=== PATIENT | male | born 1970 | race Caucasian/White ===

== ENCOUNTER 2018-06-11 15:53 | Emergency (ER) | payer OTHER ==
[2018-06-11 16:16] VITALS: BP 136/81
--- NOTE | 2018-06-11 16:31 | UC ---
Complaint Male HPI - HPI Summary HPI Summary: on 06/06/18, pt choked on a piece of his cheeseburger while urinating. he noted a simultaneous pressure in his penis and then passed some dark blood post void. that continued for 1 day. he is here today because that occured while oot and he still has a little burning with urination. he denies any hx injury as well as risk/concern for std. - History of Current Complaint Chief Complaint: UCGU Stated Complaint: URINARY Time Seen by Provider: 06/11/18 16:12 Hx Obtained From: Patient Onset/Duration: Sudden Onset Pain Intensity: 0 Aggravating Factor(s): Nothing Alleviating Factor(s): Nothing Associated Signs And Symptoms: Positive: Hematuria, Dysuria. Negative: Back Pain, Fever - Allergies/Home Medications Allergies/Adverse Reactions: Allergies Allergy/AdvReac Type Severity Reaction Status Date / Time Penicillins Allergy Severe SOB/Hives Verified 06/11/18 16:16 Home Medications: Home Medications Hydrochlorothiazide TAB* [Hydrodiuril TAB*] 25 mg PO DAILY 06/11/18 [History Confirmed 06/11/18] amLODIPine TAB* [Norvasc 5 mg TAB*] 5 mg PO DAILY 06/11/18 [History Confirmed ] PMH/Surg Hx/FS Hx/Imm Hx Cardiovascular History: Hypertension - Surgical History Surgical History: Yes Surgery Procedure, Year, and Place: CYST REMOVED FROM THROAT - Family History Known Family History: Positive: Hypertension, Diabetes, Renal Disease - Social History Occupation: Employed Full-time Alcohol Use: None Substance Use Type: None Smoking Status (MU): Former Smoker Type: Cigarettes Amount Used/How Often: 3 cigarettes daily Have You Smoked in the Last Year: Yes When Did the Patient Quit Smoking/Using Tobacco: 11/05/14 - Immunization History Hx Tetanus, Diphtheria Vaccination: No Vaccination Up to Date: Yes Review of Systems Constitutional: Negative Skin: Negative Eyes: Negative ENT: Negative Respiratory: Negative Cardiovascular: Negative Gastrointestinal: Negative Genitourinary: Dysuria, Hematuria Motor: Negative Neurovascular: Negative Musculoskeletal: Negative Neurological: Negative Psychological: Negative Is Patient Immunocompromised?: No All Other Systems Reviewed And Are Negative: Yes Physical Exam Triage Information Reviewed: Yes Appearance: Well-Appearing Vital Signs: Initial Vital Signs Temp 98.8 F 06/11/18 16:11 Pulse 66 06/11/18 16:11 Resp 18 06/11/18 16:11 BP 136/81 06/11/18 16:11 Pulse Ox 98 06/11/18 16:11 Vital Signs Reviewed: Yes Eyes: Positive: Conjunctiva Clear ENT: Positive: Pharynx normal. Negative: Nasal congestion, Nasal drainage Neck: Positive: Supple, Nontender, No Lymphadenopathy Respiratory: Positive: Lungs clear, Normal breath sounds Cardiovascular: Positive: RRR, No Murmur Abdomen Description: Positive: Nontender, No Organomegaly, Soft. Negative: Distended, Guarding Bowel Sounds: Positive: Present Male Genital Exam: Positive: Normal Genitalia, No Hernia. Negative: Bleeding, Epididymal Tenderness, Scrotum Tenderness (R), Scrotum Tenderness (L), Testicular Tenderness (R), Testicular Tenderness (L), Urethral Discharge Musculoskeletal: Positive: ROM Intact Neurological: Positive: Alert Psychological: Positive: Age Appropriate Behavior Skin Exam: Normal Diagnostics - Laboratory Diagnostic Studies Completed/Ordered: u/a= 1+ leukocytes, culture is pending. Complaint Male Course/Dx - Course Course Of Treatment: pt declined std testing citing no risk/concern. no concern for testicular torsion. not c/w prostatitis. given the hx of rhona hematuria, will refer to urology. u/a is + for leukocytes thus will tx with Bactrim with culture pending as well. pt resides in [place] and request a local urologist. - Differential Dx/Diagnosis Provider Diagnoses: Hematuria, dysuria Discharge - Sign-Out/Discharge Documenting (check all that apply): Patient Departure - Discharge Plan Condition: Stable Disposition: HOME Prescriptions: Sulfamethox/Trimethoprim DS* [Bactrim DS 800/160 TAB*] 1 tab PO BID 7 Days #14 tab Referrals: Elaina Skinner PA [Primary Care Provider] - 7 Days Additional Instructions: CALL DR PIERRE(UROLOGY) TOMORROW FOR NEXT AVAILABLE APPOINTMENT [address], [address] [place] [address] - Billing Disposition and Condition Condition: STABLE Disposition: Home
== END 2018-06-11 16:57 | disposition home or self-care (01) ==
LOC: UCCORT 15:53
DX: R31.9 Hematuria, unspecified (principal); R30.0 Dysuria; Z88.0 Allergy status to penicillin; Z87.891 Personal history of nicotine dependence
CPT/HCPCS: 81003; 87086; 99212; G0463

== ENCOUNTER 2018-07-03 19:26 | Emergency (ER) | payer OTHER ==
[2018-07-03 20:33] VITALS: BP 130/93
[2018-07-03] MEDS ORDERED: hydrOXYzine HCL TAB* 25 MG PO ONE (21:10)
[2018-07-03] MEDS ORDERED: methylPREDNISolone 125 MG* 2 ML VIAL IM ONE (21:10)
[2018-07-03] MEDS ORDERED: Famotidine TAB* 20 MG PO ONE (21:10)
--- NOTE | 2018-07-03 21:57 | UC ---
Skin Complaint HPI - HPI Summary HPI Summary: 48-year-old male history of asthma presents with episode of gradual onset asthma attack yesterday relieved by inhaler medication at home, followed by itchy rash located bilateral eyes, forehead, and extremities today, total duration 2 days, with itchiness partially relieved with Benadryl. Currently complains of bilateral eye swelling. In no current respiratory distress. Similar prior episodes in the past to varying degrees. No fevers. No worsening factors. Patient is unsure if he was exposed to any known allergens. - History of Current Complaint Chief Complaint: UCGeneralIllness Stated Complaint: SKIN CONCERN (HEAD)/FOGGY VISION Onset/Duration: Gradual Onset Pain Intensity: 0 - Allergy/Home Medications Allergies/Adverse Reactions: Allergies Allergy/AdvReac Type Severity Reaction Status Date / Time Penicillins Allergy Severe SOB/Hives Verified 07/03/18 20:33 Home Medications: Home Medications diphenhydrAMINE HCl [Benadryl] 25 mg PO DAILY 07/03/18 [History Confirmed ] Review of Systems Skin: Other - Itchiness and rash as described in history of present illness All Other Systems Reviewed And Are Negative: Yes PMH/Surg Hx/FS Hx/Imm Hx - Additional Past Medical History Additional PMH: No history of diabetes Previously Healthy: Yes - Surgical History Surgical History: Yes Surgery Procedure, Year, and Place: CYST REMOVED FROM THROAT - Family History Known Family History: Positive: Hypertension, Diabetes, Renal Disease - Social History Alcohol Use: None Substance Use Type: None Smoking Status (MU): Former Smoker Type: Cigarettes Amount Used/How Often: 3 cigarettes daily Have You Smoked in the Last Year: Yes When Did the Patient Quit Smoking/Using Tobacco: 11/05/14 - Immunization History Hx Tetanus, Diphtheria Vaccination: No Vaccination Up to Date: Yes Physical Exam - Summary Physical Exam Summary: Gen: alert, in no acute distress HEENT: EOMI, normoecphalic, atruamatic, mild bilateral upper eyelid swelling. Normal conjunctiva bilaterally. Neck: supple, no masses CV: Normal s1 s2, no murmurs Resp: normal breath sounds b/l GI: no tenderness, no masses Musculoskeletal: normal ROM all 4 extremities Skin: Minimally raised urticarial rash on forehead Lymph: no lymphadenopathy Psych: appropriate affect, oriented Triage Information Reviewed: Yes Vital Signs: Initial Vital Signs Temp 36.7 C 07/03/18 20:26 Pulse 68 07/03/18 20:26 Resp 18 07/03/18 20:26 BP 130/93 07/03/18 20:26 Pulse Ox 99 07/03/18 20:26 Course/Dx - Course Course Of Treatment: Patient feels better after medications, instructed to report to the emergency department for any worsening, and to use inhaler medication if he has any further episodes of shortness of breath. Agrees to and understands discharge instructions. - Diagnoses Provider Diagnoses: Allergic urticaria Discharge - Sign-Out/Discharge Documenting (check all that apply): Patient Departure - home All imaging exams completed and their final reports reviewed: No Studies - Discharge Plan Condition: Stable Disposition: HOME Prescriptions: Albuterol HFA INHALER* [Ventolin HFA Inhaler*] 1 puff INH Q4H PRN #2 mdi PRN Reason: Sob/Wheezing predniSONE TAB* [Deltasone TAB*] 50 mg PO DAILY #4 tab Patient Education Materials: Urticaria (ED), Allergies (ED) Forms: *Work Release Referrals: Elaina Skinner PA [Primary Care Provider] - Additional Instructions: PLEASE MAKE AN APPOINTMENT FIRST THING IN THE MORNING TO BE SEEN BY YOUR PRIMARY CARE DOCTOR PLEASE REPORT TO ER FOR ANY WORSENING OR CONCERNING SYMPTOMS PLEASE TAKE MEDICATIONS DIRECTED - Billing Disposition and Condition Condition: STABLE Disposition: Home
== END 2018-07-03 22:19 | disposition home or self-care (01) ==
LOC: UCCORT 19:26
DX: L50.0 Allergic urticaria (principal); J45.909 Unspecified asthma, uncomplicated; Z88.0 Allergy status to penicillin; Z87.891 Personal history of nicotine dependence
CPT/HCPCS: 96372; 99212; A9270-GY; G0463; J2930

== ENCOUNTER 2020-01-16 09:02 | Emergency (ER) | payer OTHER ==
[2020-01-16 09:34] VITALS: BP 131/85
--- NOTE | 2020-01-16 10:11 | UC ---
Throat Pain/Nasal Santosh HPI - HPI Summary HPI Summary: 49-year-old male presents with complaints of general malaise, fatigue, body aches, nasal congestion, sinus pressure, sore throat, and dry nonproductive cough that started 5 days ago. States symptoms are slightly better today. No recent travel. Denies fever, chills, ear pain, dysphagia, chest pain, shortness of breath, abdominal pain, nausea, vomiting, diarrhea. - History of Current Complaint Chief Complaint: UCRespiratory Stated Complaint: BA/BILAT EAR PAIN Time Seen by Provider: 01/16/20 10:07 Hx Obtained From: Patient Pain Intensity: 7 - Allergies/Home Medications Allergies/Adverse Reactions: Allergies Allergy/AdvReac Type Severity Reaction Status Date / Time Penicillins Allergy Severe SOB/Hives Verified 01/16/20 09:28 Home Medications: Home Medications Hydrochlorothiazide TAB* [Hydrodiuril TAB*] 25 mg PO DAILY 06/11/18 [History Confirmed 01/16/20] amLODIPine TAB* [Norvasc 5 mg TAB*] 5 mg PO DAILY 06/11/18 [History Confirmed ] Albuterol HFA INHALER* [Ventolin HFA Inhaler*] 1 puff INH Q4H PRN #2 mdi [Rx Confirmed 01/16/20] PMH/Surg Hx/FS Hx/Imm Hx Endocrine History: Hyperthyroidism Respiratory History: Asthma - Surgical History Surgical History: Yes Surgery Procedure, Year, and Place: CYST REMOVED FROM THROAT - Family History Known Family History: Positive: Hypertension, Diabetes, Renal Disease - Social History Occupation: Employed Full-time Lives: With Family Alcohol Use: None Substance Use Type: None Smoking Status (MU): Former Smoker Type: Cigarettes Amount Used/How Often: 3 cigarettes daily Have You Smoked in the Last Year: Yes When Did the Patient Quit Smoking/Using Tobacco: 11/05/14 - Immunization History Hx Tetanus, Diphtheria Vaccination: No Vaccination Up to Date: Yes Review of Systems All Other Systems Reviewed And Are Negative: Yes Constitutional: Positive: Fatigue. Negative: Fever, Chills Eyes: Negative: Drainage, Eye Redness ENT: Positive: Sore Throat, Nasal Discharge, Sinus Congestion, Sinus Pain/ Tenderness. Negative: Ear Ache Respiratory: Positive: Cough. Negative: Shortness Of Breath Cardiovascular: Negative: Palpitations, Chest Pain Gastrointestinal: Negative: Abdominal Pain, Vomiting, Diarrhea, Nausea Genitourinary: Positive: Negative Musculoskeletal: Positive: Myalgia Neurological/Mental Status: Positive: Negative Is Patient Immunocompromised?: No Physical Exam - Summary Physical Exam Summary: GENERAL APPEARANCE: Well developed, well nourished, alert and cooperative, and appears to be in no acute distress. EYES: Conjunctiva clear. No drainage. EARS: External auditory canals and tympanic membranes clear, hearing grossly intact. NOSE: Mild nasal congestion. No nasal discharge. THROAT: Pharyngeal erythema. No tonsilar inflammation, swelling, exudate, or lesions. Uvula midline. NECK: Neck supple, non-tender without lymphadenopathy. CARDIAC: Normal S1 and S2. No S3, S4 or murmurs. Rhythm is regular. There is no peripheral edema, cyanosis or pallor. Extremities are warm and well perfused. Capillary refill is less than 2 seconds. Peripheral pulses intact. LUNGS: Clear to auscultation without rales, rhonchi, wheezing or diminished breath sounds. Dry, non-productive cough. ABDOMEN: Positive bowel sounds. Soft, nondistended, nontender. No guarding or rebound. No masses or hepatosplenomegally. MUSKULOSKELETAL: ROM intact to all extremities. No joint erythema or tenderness. Normal muscular development. Normal gait. SKIN: Skin normal color, texture and turgor with no lesions or eruptions. Triage Information Reviewed: Yes Vital Signs: Initial Vital Signs Temp 98 F 01/16/20 09:29 Pulse 68 01/16/20 09:29 Resp 17 01/16/20 09:29 BP 131/85 01/16/20 09:29 Pulse Ox 99 01/16/20 09:29 Vital Signs Reviewed: Yes Throat Pain/Nasal Course/Dx - Course Course Of Treatment: 49-year-old male presents with complaints of general malaise, fatigue, body aches, nasal congestion, sinus pressure, sore throat, and dry nonproductive cough that started 5 days ago. States symptoms are slightly better today. No recent travel. Denies fever, chills, ear pain, dysphagia, chest pain, shortness of breath, abdominal pain, nausea, vomiting, diarrhea. Afebrile. Mildly hypertensive otherwise vital signs stable. Patient had mild nasal congestion, normal TMs, pharyngeal erythema without tonsillar swelling or exudate, no cervical lymphadenopathy, clear bilateral breath sounds, dry nonproductive cough, and otherwise unremarkable exam. Discussed with the patient that his history and exam were consistent with a viral illness including potential flu however considering the duration of his symptoms testing for flu was deferred at this time. Recommending symptomatic treatment for a viral upper respiratory infection. He is to follow-up with his primary care provider in 3-5 days if symptoms are not improving. Anticipatory guidance and warning symptoms were reviewed with the patient. Verbalized understanding and agrees with plan of care. - Differential Dx/Diagnosis Differential Diagnosis/HQI/PQRI: Influenza, Otitis Media, Pharyngitis, Sinusitis , Tonsillitis, URI Provider Diagnosis: Viral URI Discharge ED - Sign-Out/Discharge Documenting (check all that apply): Patient Departure All imaging exams completed and their final reports reviewed: No Studies - Discharge Plan Condition: Stable Disposition: HOME Patient Education Materials: Upper Respiratory Infection (ED) Referrals: Elaina Skinner PA [Primary Care Provider] - 3 Days Additional Instructions: Your history and exam are consistent with a viral upper respiratory infection. Viral infections do not respond to antibiotics and are limited to the treatment of symptoms. Viral infections typically run their course in 7-10 days. Drink plenty of fluids to avoid dehydration especially if you are running any fever. Use a saline rinse kit such as Neti Pot or NeilMed at least twice a day to help thin secretions and promote drainage of the sinuses. Use fluticasone (Flonase) nasal spray 2 sprays each nostril once daily. Take over the counter acetaminophen (Tylenol) or ibuprofen (Advil, Motrin) according to directions as needed for pain or fever. Use salt water gargles several times a day if you have a sore throat. You may also use Chloraseptic spray or Cepacol lonzenges according to directions which contain a numbing medication and can provide some temporary relief from your sore throat. Follow up with your primary care provider in 3-5 days if symptoms persist. Seek immediate medical attention in the emergency room if you have fever greater than 100.5 F despite taking acetaminophen or ibuprofen, have chest pain , difficulty breathing, are unable to swallow, or have any worsening of symptoms. - Billing Disposition and Condition Condition: STABLE Disposition: Home
== END 2020-01-16 10:31 | disposition home or self-care (01) ==
LOC: UCCORT 09:02
DX: J06.9 Acute upper respiratory infection, unspecified (principal); J45.909 Unspecified asthma, uncomplicated; Z88.0 Allergy status to penicillin; Z87.891 Personal history of nicotine dependence
CPT/HCPCS: 99211; G0463